=== PATIENT | male | born 1985 | race Caucasian/White ===

== ENCOUNTER 2021-02-07 18:17 | Emergency (ER) | payer OTHER ==
[~2021-02-07] VITALS: Ht 182.9 cm; Wt 90.7 kg
[2021-02-07] MEDS ORDERED: IBUP400 PO (18:32)
== END 2021-02-07 20:22 | disposition home or self-care (01) ==
LOC: ER 18:17
DX: S01.91XA Laceration without foreign body of unspecified part of head, initial encounter (principal); M54.2 Cervicalgia; M54.6 Pain in thoracic spine; Z87.891 Personal history of nicotine dependence; V47.5XXA Car driver injured in collision with fixed or stationary object in traffic accident, initial encounter; Y92.410 Unspecified street and highway as the place of occurrence of the external cause
CPT/HCPCS: 12002; 70450; 71045; 72125; 72128; 73090; 96374-59; 96375-59; 99284-25; A9270; J1885; J3360